=== PATIENT | male | born 1930 | race Caucasian/White ===

== ENCOUNTER 2018-08-03 14:06 | Emergency (ER) | payer MEDICARE ==
[~2018-08-03] VITALS: Ht 177.8 cm; Wt 93.9 kg
[2018-08-03] MEDS ORDERED: FELODIPINE 5 MG5 M1 PO (14:32)
[2018-08-03] MEDS ORDERED: MELOXICAM15 MG PO (14:32)
[2018-08-03] MEDS ORDERED: LOPRESSOR50 PO (14:32)
[2018-08-03] MEDS ORDERED: FISH OIL 1,001000 M2 PO (14:33)
[2018-08-03] MEDS ORDERED: LOVASTATIN 20 M20 MG PO (14:33)
[2018-08-03] MEDS ORDERED: GINKGO60 MG PO (14:33)
[2018-08-03] MEDS ORDERED: [UNRECOGNIZED DRUG - OTHER] (14:33)
[2018-08-03] MEDS ORDERED: OSTEO BI-FLEX1 EAC1 PO (14:34)
[2018-08-03] MEDS ORDERED: CARVEDILOL3.125 MG PO (14:34)
[2018-08-03 15:47] VITALS: BP 177/47
== END 2018-08-03 15:47 | disposition home or self-care (01) ==
LOC: M.ERS 14:06
DX: R20.2 Paresthesia of skin (principal)